=== PATIENT | female | born 1985 | race American Indian/Alaskan Native ===

== ENCOUNTER 2017-04-07 11:35 | Emergency (ER) | payer SELFPAY ==
[2017-04-07 12:05] VITALS: BP 129/93
--- NOTE | 2017-04-07 15:51 | XRay Report ---
Left fifth toe. Findings: There are no fractures or other significant findings.
== END 2017-04-07 13:53 | disposition left against medical advice (07) ==
LOC: ED 11:35
DX: Z53.21 Procedure and treatment not carried out due to patient leaving prior to being seen by health care provider (principal)
CPT/HCPCS: 81025

== ENCOUNTER 2017-04-24 12:07 | Emergency (ER) | payer OTHER ==
[2017-04-24 12:45] VITALS: BP 117/63
[2017-04-24 13:40] LABS: Basophils % (Auto) 0.8 % (0.0-1.8); Hematocrit 43.9 % (30.3-42.9); Hemoglobin 14.6 gm/dl (10.1-14.3); Mean Corpuscular HGB Conc 33 % (30-34); Mean Corpuscular Hemoglobin 29 pg (28-32); Mean Corpuscular Volume 89 fl (79-97); Platelet Count 234 K/mm3 (140-440); Red Blood Count 4.96 M/mm3 (3.65-5.03); Red Cell Distribution Width 13.2 % (13.2-15.2); White Blood Count 7.6 K/mm3 (4.5-11.0)
--- NOTE | 2017-04-24 15:58 | Ultrasound Report ---
FINAL REPORT EXAM: US TRANSVAGINAL HISTORY: abdominal pain TECHNIQUE: Transabdominal and transvaginal pelvic ultrasound. PRIORS: None currently available. FINDINGS: Uterus: 7.4 x 3.7 x 5.6 cm. Anteflexed. Homogeneous. No distinct lesions. Endometrium: 6.6 mm. Echogenic. Within normal limits. Right ovary: 3.8 x 2.9 x 3.6 cm. Large simple ovarian cyst measures 3.8 x 2.9 x 3.6 cm. Flow is present within the ovary. Left ovary: 2.7 x 2.1 x 2.7 cm. Simple ovarian cyst measures 2.7 x 2.1 x 2.7 cm. Flow is present within the ovaries. No adnexal lesions. No significant free fluid. IMPRESSION: Simple bilateral ovarian cysts.
--- NOTE | 2017-04-24 15:59 | Ultrasound Report ---
FINAL REPORT EXAM: US PELVIC COMPLETE HISTORY: abdominal pain TECHNIQUE: Transabdominal and transvaginal pelvic ultrasound. PRIORS: None currently available. FINDINGS: Uterus: 7.4 x 3.7 x 5.6 cm. Anteflexed. Homogeneous. No distinct lesions. Endometrium: 6.6 mm. Echogenic. Within normal limits. Right ovary: 3.8 x 2.9 x 3.6 cm. Large simple ovarian cyst measures 3.8 x 2.9 x 3.6 cm. Flow is present within the ovary. Left ovary: 2.7 x 2.1 x 2.7 cm. Simple ovarian cyst measures 2.7 x 2.1 x 2.7 cm. Flow is present within the ovaries. No adnexal lesions. No significant free fluid. IMPRESSION: Simple bilateral ovarian cysts.
== END 2017-04-24 16:07 | disposition left against medical advice (07) ==
LOC: ED 12:07
DX: O20.9 Hemorrhage in early pregnancy, unspecified (principal); Z3A.01 Less than 8 weeks gestation of pregnancy; Z53.21 Procedure and treatment not carried out due to patient leaving prior to being seen by health care provider
CPT/HCPCS: 36415; 76830; 76856; 84702; 85025; 86900; 86901